=== PATIENT | female | born 1985 | race Two or more races ===

== ENCOUNTER 2018-09-27 03:47 | Emergency (ER) | payer OTHER, MEDICAID ==
[~2018-09-27] VITALS: Ht 157.5 cm; Wt 65.0 kg
[2018-09-27] MEDS ORDERED: IBUPROFEN 600MG TABLET PO ONE (06:15)
[2018-09-27 07:59] VITALS: BP 116/62
== END 2018-09-27 08:02 | disposition home or self-care (01) ==
LOC: ER 05:43
DX: S16.1XXA Strain of muscle, fascia and tendon at neck level, initial encounter (principal); M25.511 Pain in right shoulder; V49.59XA Passenger injured in collision with other motor vehicles in traffic accident, initial encounter; Y93.89 Activity, other specified; Y92.410 Unspecified street and highway as the place of occurrence of the external cause
CPT/HCPCS: 72040; 73030; 99283